=== PATIENT | male | born 1960 | race Caucasian/White ===

== ENCOUNTER 2023-09-18 14:40 | Outpatient (AMB) | payer OTHER, SELFPAY ==
--- NOTE | 2023-09-18 14:41 | MHC.OFFVIS ---
Vital Signs 09/18/23 14:50 Height 5 ft 5 in Weight 195 lb BMI 32.4 BP 142/90 H Blood Pressure Location Rt brachial Position Sitting Pulse 81 Intake Visit Reasons: Symptomatic Ramon Cyst to Left Upper Shoulder Intake Note: This patient presents for an assessment for symptomatic Sebaceous Cyst of the Left Upper Shoulder. Pt c/o; reports pain and discomfort, report left shoulder. 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 He says that he has had this for a few months. He denies any drainage or skin changes. He denies inflammation but he does state that seems to have increased in size. He therefore wants this removed. [facility] Medical History (Updated 09/18/23 @ 14:54 by Raj Ferrer MD) Epidermal inclusion cyst Surgical History (Updated 09/18/23 @ 14:48 by ANDRZEJ Adair) History of nasal surgery Social History Alcohol intake: current Alcohol intake frequency: holidays/special occasions only Patient Tobacco Use Status: Never used Tobacco Review of Systems Const Denies chills and Denies fever(s) Card Denies chest pain, Denies dyspnea and Denies dyspnea on exertion Resp Denies cough, Denies dyspnea and Denies dyspnea on exertion GI Denies hematochezia and Denies change in bowel habits Denies hematuria and Denies difficulty urinating Musc Denies back pain and Denies limited range of motion Neuro Denies focal weakness and Denies convulsions Psych Denies depression and Denies mood swings Physical Exam Const General: comfortable and no acute distress Orientation/consciousness: patient oriented x3 Neck Neck: Yes no lymphadenopathy Resp Auscultation: clear to auscultation bilaterally Cardio Rhythm: regular rhythm GI Palpation (GI): Soft to palpation, nontender and no guarding Back/Spine/Pelvis Other: On the left shoulder is note of an epidermal inclusion cyst, about 2 cm in diameter, not inflamed Neuro General: patient oriented x3 Assessment & Plan Assessment & Plan (1) Epidermal inclusion cyst: Code(s): L72.0 - Epidermal cyst Category: Medical Plan I explained to him the technique of excision of this epidermal cyst on his left shoulder.. I reviewed the risks including but not limited to bleeding and infections, as well as the benefits and alternatives. He understands and wants to proceed. This will be done on his next visit here in the office. Coding Level of Care Code New Pt Level 3 (92022) Diagnoses Epidermal inclusion cyst L72.0
[2023-09-18 14:50] VITALS: BP 142/90; PULSE 81; BMI 32.4
== END 2023-09-18 15:00 | disposition home or self-care (01) ==
PROVIDERS: PCP Internal Medicine; Visit Provider Surgery
DX: L72.0 Epidermal cyst (principal)
CPT/HCPCS: 99203

== ENCOUNTER → 2023-09-18 14:40 | Outpatient (BNVA) | payer OTHER, SELFPAY | PROVIDERS: PCP Internal Medicine; Visit Provider Surgery | DX: L72.0 Epidermal cyst (principal) | CPT/HCPCS: 99202 ==

== ENCOUNTER 2023-10-06 14:45 | Outpatient (REF) | payer OTHER, SELFPAY | END 2023-10-06 14:46 | disposition home or self-care (01) | LOC: HO.LNP 14:45 | PROVIDERS: PCP Internal Medicine; Visit Provider Surgery | DX: L72.0 Epidermal cyst (principal) | CPT/HCPCS: 11423; 88304 ==

== ENCOUNTER 2023-10-06 14:45 | Outpatient (AMB) | payer OTHER, SELFPAY ==
--- NOTE | 2023-10-06 14:50 | MHC.OFFVIS ---
Intake Visit Reasons: Exc Symptomatic Ramon Cyst to Left Upper Shoulder Intake Note: Office procedure: Excision Symptomatic Ramon Cyst to Left Upper Shoulder. 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 Lidocaine 1% was used for local anesthesia. I made an elliptical incision on the skin surrounding this cyst using blade 15. This carried down through the full-thickness of the skin and subcutaneous fat to excise this entire indurated area. This was about a 2.2 cm cystic induration. The incision was closed with full-thickness nylon 3-0 interrupted sutures. Dressings were applied. The procedure was completed. He tolerated the procedure well. There were no immediate complications. There was minimal blood loss. [id number] scalp/neck/hands/feet/genitalia 2.1cm-3cm Procedure code (CPT) selection complete Assessment & Plan Assessment & Plan (1) Epidermal inclusion cyst: Code(s): L72.0 - Epidermal cyst Category: Medical Plan: Excision was done in the office local anesthesia. He was given wound care instructions. Coding Level of Care Code Global (72467) Diagnoses Epidermal inclusion cyst L72.0 CPT Codes Scalp/Neck/Hands/Feet/Genetalia - CPT: 10920-Lvscmsof scalp/neck/hands/feet/genitalia 2.1cm-3cm ([id number])
== END 2023-10-06 15:17 | disposition home or self-care (01) ==
PROVIDERS: PCP Internal Medicine; Visit Provider Surgery
DX: L72.0 Epidermal cyst (principal)
CPT/HCPCS: 11423

== ENCOUNTER 2023-10-15 14:26 | Outpatient (AMB) | payer OTHER, SELFPAY ==
--- NOTE | 2023-10-15 14:28 | A.OFFVIS_ITS ---
Intake Visit Reasons: S/p exc edilberto cyst left upper shoulder Intake Note: This patient presents for a post-op assessment status post Epidermal inclusion cyst. Patient c/o; reports no complaints. 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 He tolerated the procedure well. He currently denies significant complaints. [facility] Medical History Epidermal inclusion cyst Surgical History History of removal of cyst (~10/06/23) History of nasal surgery Social History Alcohol intake: current Alcohol intake frequency: holidays/special occasions only Patient Tobacco Use Status: Never used Tobacco Review of Systems Const Denies chills and Denies fever(s) Card Denies chest pain, Denies dyspnea and Denies dyspnea on exertion Resp Denies cough, Denies dyspnea and Denies dyspnea on exertion GI Denies hematochezia and Denies change in bowel habits Denies hematuria and Denies difficulty urinating Musc Denies back pain and Denies limited range of motion Neuro Denies focal weakness and Denies convulsions Psych Denies depression and Denies mood swings Physical Exam Const General: comfortable and no acute distress Back/Spine/Pelvis Other: Excision site on the left upper back near shoulder is well healed, sutures inta ct, not infected Assessment & Plan Assessment & Plan (1) Epidermal inclusion cyst: Code(s): L72.0 - Epidermal cyst Category: Medical Plan: Status post excision. He is doing well. The incisions well healed. I removed his sutures. I reinforced the incision with Steri-Strips. He can follow up on a p.r.n. basis. His path report shows an epidermal inclusion cyst. Coding Level of Care Code Global (25695) Diagnoses Epidermal inclusion cyst L72.0
== END 2023-10-15 14:37 | disposition home or self-care (01) ==
PROVIDERS: PCP Internal Medicine; Visit Provider Surgery
DX: L72.0 Epidermal cyst (principal)
CPT/HCPCS: 99024

== ENCOUNTER → 2023-10-15 14:26 | Outpatient (BNVA) | payer OTHER, SELFPAY | PROVIDERS: PCP Internal Medicine; Visit Provider Surgery | DX: Z09 Encounter for follow-up examination after completed treatment for conditions other than malignant neoplasm (principal) | CPT/HCPCS: 99212 ==

== ENCOUNTER 2023-10-27 14:36 | Outpatient (AMB) | payer OTHER, SELFPAY ==
--- NOTE | 2023-10-27 14:57 | A.OFFVIS_ITS ---
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 Lopez. He has a past medical history of depression, insomnia, chronic rhinitis, nephrolithiasis, and BPH. He presents to the office today as a new patient for his longstanding history of nephrolithiasis and BPH. In discussion with the patient today he reports previously following up with a urologist in the [place] through the [place]. he reports having followed up with his PCP at which time recommendations were made for urology referral for further assessment evaluation. Patient reports noting intermittent episodes of left-sided flank pain with increased episodes of urinary frequency and nocturia. Reports being on Flomax for over 3 years and feels this has been helpful however does feel lower urinary tract symptoms of nocturia and urinary frequency have somewhat worsened since then. In office urinalysis results reviewed with the patient today. Microscopic hematuria noted. When asked he denies any previous smoking history and or chemical exposure. 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 Discussed at length potential causes of microscopic hematuria. He denies any previous surgical intervention for nephrolithiasis. He otherwise denies urinary urgency incontinence, nocturia, hematuria, dysuria, foul smelling urine, changes to urinary stream, flank pain, fever, and or chills. Discussed obtaining PSA and CT KUB for further assessment evaluation. PVR 23ml's. He otherwise offers no other issues or concerns at this time. [facility] Medical History Epidermal inclusion cyst Surgical History History of removal of cyst (~10/06/23) History of nasal surgery Social History Alcohol intake: current Alcohol intake frequency: holidays/special occasions only Patient Tobacco Use Status: Never used Tobacco Review of Systems Const All systems reviewed & are unremarkable except as noted in HPI and below Physical Exam Const General: cooperative, healthy appearing, comfortable, no acute distress, well developed, alert and awake Orientation/consciousness: patient oriented x3 Limitations: no limitations HEENT Head: Yes normal to inspection, Yes normocephalic and Yes atraumatic Ears: hearing grossly normal bilaterally Eyes General: appearance normal, both eyes and all related structures Neck Neck: Yes normal visual inspection and Yes trachea midline Chest Chest palpation & inspection: normal inspection of the chest Resp Effort & Inspection: normal respiratory effort and able to speak in complete sentences Cardio Rate: regular rate GI Inspection: Yes normal to inspection General: Yes no CVA tenderness Back/Spine/Pelvis Back: no CVA tenderness Skin General skin exam: no rashes or lesions noted Neuro General: patient oriented x3 Extrem General: Yes normal to inspection Psych Appearance: grossly normal and well kempt Mental Status: mental status grossly normal Speech and movement: Normal speech and movement present and Clear speech present Affect: normal affect Attitude: cooperative Thought process: Normal thought process present Thought content: Normal thought content present Insight: Fair insight present (Psych) Judgement: Fair judgement present (Psych) Office Procedures Post Void Residual Post Residual Void Post Void Residual (PVR): 23 [id number] Void Residual by ultrasound Results AMB Urinalysis, Automated UA Leukoctes 0 Fallon/uL Last Edit by Arnoldo Gomes on 10/27/23 15:11 UA Nitrite Negative Last Edit by Arnoldo Gomes on 10/27/23 15:11 UA Urobilinogen 0.2 mg/dL Last Edit by Arnoldo Gomes on 10/27/23 15:11 UA Protein 15 mg/dL Last Edit by Arnoldo Gomes on 10/27/23 15:11 UA pH 6.0 Last Edit by Arnoldo Gomes on 10/27/23 15:11 UA Blood 80 Yonatan/uL Last Edit by Arnoldo Gomes on 10/27/23 15:11 UA Specific [place] 1.025 Last Edit by Arnoldo Perezbalaji on 10/27/23 15:11 UA Ketone Positive Last Edit by Arnoldo Perezbalaji on 10/27/23 15:11 UA Bilirubin 1 mg/dL Last Edit by Arnoldo Perezbalaji on 10/27/23 15:11 UA Glucose 0 mg/dL Last Edit by Arnoldo Perezbalaji on 10/27/23 15:11 Results Reviewed Results Reviewed: Laboratory Last Values Urine pH (Auto) 6.0 10/27/23 15:10 Specific [place] (Auto) 1.025 10/27/23 15:10 Urine Protein (Auto) 15 mg/dL 10/27/23 15:10 Glucose (UA)(Auto) 0 mg/dL 10/27/23 15:10 Urine Ketones (Auto) Positive 10/27/23 15:10 Urine Blood (Auto) 80 Yonatan/uL 10/27/23 15:10 Urine Nitrite (Auto) Negative 10/27/23 15:10 Urine Bilirubin (Auto) 1 mg/dL 10/27/23 15:10 Urine Urobilinogen (Auto) 0.2 mg/dL 10/27/23 15:10 Leukocyte Esterase (Auto) 0 Fallon/uL 10/27/23 15:10 Assessment & Plan Assessment & Plan (1) Nephrolithiasis: Code(s): N20.0 - Calculus of kidney Category: Medical (2) Flank pain: Code(s): R10.9 - Unspecified abdominal pain Category: Medical (3) BPH (benign prostatic hyperplasia): Code(s): N40.0 - Benign prostatic hyperplasia without lower urinary tract symptoms Category: Medical Plan In office urinalysis results reviewed with the patient today; as noted above; will send for urine cytology. Discussed, educated, and stressed the importance of adequate hydration in relation to nephrolithiasis as well as overall health and well-being. Continue Flomax; prescription provided. Will obtain CT KUB for further assessment evaluation. Will obtain PSA for further assessment evaluation. Discussed lifestyle modifications to assist with nocturia. Follow-up in 1-3 months with imaging and labs to be completed prior; or sooner with any issues, concerns, and or questions. Orders: Orders Prostate Specific Antigen Today N40.0 - Benign prostatic hyperplasia without lower urinary tract symptoms Urine Cytology Today Z13.9 - Encounter for screening, unspecified AMB Urinalysis Automated Today Z13.9 - Encounter for screening, unspecified AMB Post Void Residual by ultrasound Today Z13.9 - Encounter for screening, unspecified CT kidney stone Today N20.0 - Calculus of kidney, R10.9 - Unspecified abdominal pain Medications: Changed From tamsulosin 0.8 mg PO DAILY To tamsulosin 0.8 mg (2 x 0.4 mg) PO DAILY 180 caps 1RF 90 days Patient Instructions: The patient had an opportunity to ask questions regarding the treatment plan. All questions were answered. Physical exam, labs, and imaging were discussed and reviewed in detail. As well as risks, benefits, and discussion of treatment choices. No major barriers to understanding were identified. The patient expressed understanding and agreement with the above treatment plan. The patient was made aware they should contact our office by phone for worsening of their current condition, the appearance of new symptoms, or with any questions or concerns. Compliance is encouraged with any medications and follow up testing that is ordered. It is a privilege to be allowed the opportunity to participate in? your urological care.? Again, if you have any questions or concerns If you have any questions or concerns please do not hesitate to contact me. The office is [phone]. This note is constructed using voice recognition software. While every effort has been made to ensure accuracy acquisitions assistant errors may have been included. Yours sincerely, PHUC Rodriguez Coding Level of Care Code New Pt Level 3 (79054) Diagnoses Nephrolithiasis N20.0 Flank pain R10.9 BPH (benign prostatic hyperplasia) N40.0 CPT Codes Post Residual Void - PVR CPT Code: 65215-Csiu Void Residual by ultrasound ([id number])
== END 2023-10-27 15:28 | disposition home or self-care (01) ==
PROVIDERS: PCP Internal Medicine; Referring Provider Internal Medicine; Visit Provider Nurse Practitioner Family
DX: N20.0 Calculus of kidney (principal); R10.9 Unspecified abdominal pain; N40.0 Benign prostatic hyperplasia without lower urinary tract symptoms; Z13.9 Encounter for screening, unspecified
CPT/HCPCS: 99203

== ENCOUNTER 2023-10-27 14:36 | Outpatient (REF) | payer OTHER, SELFPAY ==
[2023-10-27 17:23] LABS: Urine Cytology See Pathology rpt
== END 2023-10-27 14:37 | disposition home or self-care (01) ==
LOC: HO.LNP 14:36
PROVIDERS: PCP Internal Medicine; Visit Provider Nurse Practitioner Family
DX: N20.0 Calculus of kidney (principal); R10.9 Unspecified abdominal pain; N40.0 Benign prostatic hyperplasia without lower urinary tract symptoms
CPT/HCPCS: 51798; 81003; 88112; 99202

== ENCOUNTER 2023-12-09 16:37 | Outpatient (REF) | payer OTHER, SELFPAY ==
--- NOTE | ~2023-12-09 | CT_ITS ---
EXAMINATION: CT ABDOMEN AND PELVIS WITHOUT CONTRAST CLINICAL INFORMATION: Renal calculus. COMPARISON: None available. TECHNIQUE: Multidetector volumetric imaging was performed from the superior aspect of the liver through the pubic symphysis. Sagittal and coronal reformatted images were obtained on the technologist's workstation. This CT examination was performed using dose optimization techniques as appropriate, variously including the following: *Automated exposure control *Adjustment of mA and/or kV according to patient size (this includes techniques or standardized protocols for targeted exams where dose is matched to indication/reason for exam; i.e. extremities or head) *Use of iterative reconstruction technique DLP: 42 mGy-cm FINDINGS: LUNG BASES: A tiny benign, calcified granuloma is seen at the left lateral costophrenic angle. LIVER, GALLBLADDER, AND BILIARY TREE: The liver is normal in size, shape, and attenuation. No focal hepatic lesion or biliary ductal dilatation is present. The gallbladder is unremarkable with no evidence of radiopaque gallstones, gallbladder wall thickening, or obvious pericholecystic inflammatory changes. PANCREAS: Unremarkable. SPLEEN: Unremarkable. ADRENAL GLANDS: Unremarkable. KIDNEYS AND URETERS: The kidneys are normal in size, shape, and attenuation. At the lower pole of the right kidney (3:29), a 3 mm nonobstructing calculus is seen. No further urinary calculus is seen, and there is no obstructive uropathy. No urinary mass is noted. There is mild nonspecific bilateral perinephric stranding. BLADDER: Decompressed and otherwise unremarkable. GASTROINTESTINAL TRACT: The small and large bowel are unremarkable. The appendix is unremarkable. ABDOMINAL WALL: There is a very small fat-containing umbilical hernia. LYMPH NODES: Normal. VASCULAR: There is mild aortoiliac atherosclerotic calcification. No abdominal aortic aneurysm is seen. PELVIC VISCERA: The prostate and seminal vesicles are unremarkable. OSSEOUS STRUCTURES: There is multi-level thoracolumbar spondylosis, with endplate arthropathy and Schmorl's node formation. Endplate arthropathy is particularly severe at T10-11, with anterior bridging. No acute or aggressive osseous finding is noted. CT/CT kidney stone IMPRESSION: 1. A 3 mm nonobstructing right renal lower pole calculus is seen. No further urinary calculus is seen, and there is no obstructive uropathy. 2. There is no abdominopelvic mass, free fluid or lymphadenopathy. 3. No bowel obstruction, free intraperitoneal air or abscess is seen. There is no appendicitis or diverticulitis. 4. There is no abdominopelvic lymphadenopathy or ascites. 5. There is multi-level thoracolumbar spondylosis. No acute or aggressive osseous finding is seen. Fleischner guidelines were followed. Electronically signed by: Hugh Bedolla MD 12/23/2023 04:23 PM EDT
== END 2023-12-09 16:38 | disposition home or self-care (01) ==
LOC: HO.CT 16:37
PROVIDERS: Visit Provider Nurse Practitioner Family
DX: R10.9 Unspecified abdominal pain (principal); N20.0 Calculus of kidney
CPT/HCPCS: 74176

== ENCOUNTER 2023-12-20 11:18 | Outpatient (REF) | payer OTHER, SELFPAY ==
[2023-12-20 14:03] LABS: Prostate Specific Antigen 0.57 ng/mL (<0.05-4.0)
== END 2023-12-20 11:19 | disposition home or self-care (01) ==
LOC: HO.HMGCLDS 11:18
PROVIDERS: Visit Provider Nurse Practitioner Family
DX: N40.0 Benign prostatic hyperplasia without lower urinary tract symptoms (principal); Z12.5 Encounter for screening for malignant neoplasm of prostate
CPT/HCPCS: 36415; 84153

== ENCOUNTER 2023-12-23 14:31 | Outpatient (AMB) | payer OTHER, SELFPAY ==
--- NOTE | 2023-12-23 14:39 | A.OFFVIS_ITS ---
Intake Visit Reasons: 2m/CT KUB/PSA Intake Note: Patient presents today for follow up visit on: BPH, nephrolithiasis, CT Scan and PSA results Imaging Completed: 12/09/23 PSA: 0.57 Urology Medications: Tamsulosin Allergies to Antibiotic: none Blood Thinner: none PVR: 39ml's Distribution Field Technician Required: No Accompanied by: Self / Same As Patient Allergies No Known Allergies Allergy (Verified 12/23/23 16:15) Medication List - Last Reconciled 12/23/23 by PHUC Rodriguez bupropion HCl SR 100 mg PO QAM fluticasone propionate 50 mcg/actuation sprays intranasal gabapentin mg PO paroxetine HCl 40 mg PO DAILY prazosin 10 mg PO BID tamsulosin 0.8 mg (2 x 0.4 mg) PO DAILY 90 days trazodone 100 mg PO BEDTIME HPI Comments Details: Priyank is a very pleasant 63-year-old male patient of Dr. Lopez. He has a past medical history of depression, insomnia, chronic rhinitis, nephrolithiasis, and BPH. He presents to the office today for follow-up. Of note, patient was seen approximately 6 weeks ago as a new patient for his longstanding history of nephrolithiasis, microscopic hematuria and BPH at which time a CT urogram was ordered as well as a PSA for further assessment evaluation. These results reviewed with the patient today. The kidneys are normal in size, shape, and attenuation. At the lower pole of the right kidney a 3 mm nonobstructing calculus is seen. There are no further urinary calculus is seen and there is no obstructive uropathy. No urinary masses noted. The bladder is decompressed otherwise unremarkable. PSA 12/19 0.6. He reports currently being happy with voiding parameters on 0.8 mg of Flomax daily. However he does discuss noting urinary symptoms if he misses a dose. In office urinalysis results reviewed with the patient today. PVR 39 mL. Reviewed urine cytology 11/18 Negative for high-grade urothelial carcinoma. We discussed at length potential causes of microscopic hematuria. Discussed workup to include in office cystoscopy versus surveillance monitoring risks and benefits of these interventions were discussed. He otherwise denies urinary urgency incontinence, nocturia, hematuria, dysuria, foul smelling urine, changes to urinary stream, flank pain, fever, and or chills. He otherwise offers no other issues or concerns at this time. [facility] Medical History Epidermal inclusion cyst Surgical History History of removal of cyst (~10/06/23) History of nasal surgery Social History Alcohol intake: current Alcohol intake frequency: holidays/special occasions only Patient Tobacco Use Status: Never used Tobacco Review of Systems Const All systems reviewed & are unremarkable except as noted in HPI and below Physical Exam Const General: cooperative, healthy appearing, comfortable, no acute distress, well developed, alert and awake Orientation/consciousness: patient oriented x3 Limitations: no limitations HEENT Head: Yes normal to inspection, Yes normocephalic and Yes atraumatic Ears: hearing grossly normal bilaterally Eyes General: appearance normal, both eyes and all related structures Neck Neck: Yes normal visual inspection and Yes trachea midline Chest Chest palpation & inspection: normal inspection of the chest Resp Effort & Inspection: normal respiratory effort and able to speak in complete sentences Cardio Rate: regular rate GI Inspection: Yes normal to inspection General: Yes no CVA tenderness Back/Spine/Pelvis Back: no CVA tenderness Skin General skin exam: no rashes or lesions noted Neuro General: patient oriented x3 Extrem General: Yes normal to inspection Psych Appearance: grossly normal and well kempt Mental Status: mental status grossly normal Speech and movement: Normal speech and movement present and Clear speech present Affect: normal affect Attitude: cooperative Thought process: Normal thought process present Thought content: Normal thought content present Insight: Fair insight present (Psych) Judgement: Fair judgement present (Psych) Office Procedures Post Void Residual Post Residual Void Post Void Residual (PVR): 39 [id number] Void Residual by ultrasound Results AMB Urinalysis, Automated UA Leukoctes 0 Fallon/uL Last Edit by Arnoldo Gmoes on 12/23/23 14:57 UA Nitrite Last Edit by Arnoldo Gomes on 12/23/23 14:57 UA Urobilinogen 0.2 mg/dL Last Edit by Arnoldo Gomes on 12/23/23 14:57 UA Protein 15 mg/dL Last Edit by Arnoldo Gomes on 12/23/23 14:57 UA pH 6.0 Last Edit by Arnoldo Gomes on 12/23/23 14:57 UA Blood 25 Yonatan/uL Last Edit by Arnoldo Gomes on 12/23/23 14:57 UA Specific [place] 1.025 Last Edit by Arnoldo Gomes on 12/23/23 14:57 UA Ketone Last Edit by Arnoldo Gomes on 12/23/23 14:57 UA Bilirubin 1 mg/dL Last Edit by Arnoldo Gomes on 12/23/23 14:57 UA Glucose 0 mg/dL Last Edit by Arnoldo Gomes on 12/23/23 14:57 Results Reviewed Results Reviewed: Laboratory Last Values Urine pH (Auto) 6.0 12/23/23 14:48 Specific [place] (Auto) 1.025 12/23/23 14:48 Urine Protein (Auto) 15 mg/dL 12/23/23 14:48 Glucose (UA)(Auto) 0 mg/dL 12/23/23 14:48 Urine Blood (Auto) 25 Yonatan/uL 12/23/23 14:48 Urine Bilirubin (Auto) 1 mg/dL 12/23/23 14:48 Urine Urobilinogen (Auto) 0.2 mg/dL 12/23/23 14:48 Leukocyte Esterase (Auto) 0 Fallon/uL 12/23/23 14:48 Date of Service: 12/09/23 EXAMINATION: CT ABDOMEN AND PELVIS WITHOUT CONTRAST FINDINGS: LUNG BASES: A tiny benign, calcified granuloma is seen at the left lateral costophrenic angle. LIVER, GALLBLADDER, AND BILIARY TREE: The liver is normal in size, shape, and attenuation. No focal hepatic lesion or biliary ductal dilatation is present. The gallbladder is unremarkable with no evidence of radiopaque gallstones, gallbladder wall thickening, or obvious pericholecystic inflammatory changes. PANCREAS: Unremarkable. SPLEEN: Unremarkable. ADRENAL GLANDS: Unremarkable. KIDNEYS AND URETERS: The kidneys are normal in size, shape, and attenuation. At the lower pole of the right kidney (3:29), a 3 mm nonobstructing calculus is seen. No further urinary calculus is seen, and there is no obstructive uropathy. No urinary mass is noted. There is mild nonspecific bilateral perinephric stranding. BLADDER: Decompressed and otherwise unremarkable. GASTROINTESTINAL TRACT: The small and large bowel are unremarkable. The appendix is unremarkable. ABDOMINAL WALL: There is a very small fat-containing umbilical hernia. LYMPH NODES: Normal. VASCULAR: There is mild aortoiliac atherosclerotic calcification. No abdominal aortic aneurysm is seen. PELVIC VISCERA: The prostate and seminal vesicles are unremarkable. OSSEOUS STRUCTURES: There is multi-level thoracolumbar spondylosis, with endplate arthropathy and Schmorl's node formation. Endplate arthropathy is particularly severe at T10-11, with anterior bridging. No acute or aggressive osseous finding is noted. CT/CT kidney stone IMPRESSION: 1. A 3 mm nonobstructing right renal lower pole calculus is seen. No further urinary calculus is seen, and there is no obstructive uropathy. 2. There is no abdominopelvic mass, free fluid or lymphadenopathy. 3. No bowel obstruction, free intraperitoneal air or abscess is seen. There is no appendicitis or diverticulitis. 4. There is no abdominopelvic lymphadenopathy or ascites. 5. There is multi-level thoracolumbar spondylosis. No acute or aggressive osseous finding is seen. Assessment & Plan Assessment & Plan (1) BPH (benign prostatic hyperplasia): Code(s): N40.0 - Benign prostatic hyperplasia without lower urinary tract symptoms Category: Medical (2) Nephrolithiasis: Code(s): N20.0 - Calculus of kidney Category: Medical (3) Microscopic hematuria: Code(s): R31.29 - Other microscopic hematuria Category: Medical Plan In office urinalysis results reviewed with the patient today; as noted above. Recent CT urogram results reviewed with the patient today; as noted above. PVR 39 mL. Previous urine cytology results reviewed with the patient today; as noted above. Recent PSA results reviewed with the patient today; as noted above. Discussed at length potential causes of microscopic hematuria; discussed workup to include in office cystoscopy versus surveillance monitoring; risks and benefits of these interventions were discussed at length. All questions were answered. Discussed, educated, and stressed the importance of adequate hydration relation to nephrolithiasis as well as overall health and well-being. Continue Flomax. Patient currently denies any bothersome urinary issues or concerns. Reports to be happy with current voiding parameters on 0.8 mg of Flomax daily; will continue. Will continue with surveillance monitoring of nephrolithiasis as well as microscopic hematuria. Discussed adding 1 oz of lemon juice to water daily. Will obtain renal ultrasound in 6 months. Follow-up in 6 months with imaging to be completed prior; or sooner with any issues, concerns, and or questions. Orders: Orders AMB Post Void Residual by ultrasound Today N40.0 - Benign prostatic hyperplasia without lower urinary tract symptoms AMB Urinalysis Automated Today Z13.9 - Encounter for screening, unspecified US renal BI 6 Months N20.0 - Calculus of kidney Patient Instructions: The patient had an opportunity to ask questions regarding the treatment plan. All questions were answered. Physical exam, labs, and imaging were discussed and reviewed in detail. As well as risks, benefits, and discussion of treatment choices. No major barriers to understanding were identified. The patient expressed understanding and agreement with the above treatment plan. The patient was made aware they should contact our office by phone for worsening of their current condition, the appearance of new symptoms, or with any questi ons or concerns. Compliance is encouraged with any medications and follow up testing that is ordered. It is a privilege to be allowed the opportunity to participate in? your urological care.? Again, if you have any questions or concerns If you have any questions or concerns please do not hesitate to contact me. The office is [phone]. This note is constructed using voice recognition software. While every effort has been made to ensure accuracy application design engineer errors may have been included. Yours sincerely, PHUC Rodriguez Coding Level of Care Code Est Pt Level 4 (35518) Complex EM visit Add On G2211 Diagnoses BPH (benign prostatic hyperplasia) N40.0 Nephrolithiasis N20.0 Microscopic hematuria R31.29 CPT Codes Post Residual Void - PVR CPT Code: 50271-Kfnq Void Residual by ultrasound ([id number])
== END 2023-12-23 15:20 | disposition home or self-care (01) ==
PROVIDERS: PCP Internal Medicine; Visit Provider Nurse Practitioner Family
DX: N40.0 Benign prostatic hyperplasia without lower urinary tract symptoms (principal); N20.0 Calculus of kidney; R31.29 Other microscopic hematuria; Z13.9 Encounter for screening, unspecified
CPT/HCPCS: 99214; G2211

== ENCOUNTER → 2023-12-23 14:31 | Outpatient (BNVA) | payer OTHER, SELFPAY | PROVIDERS: PCP Internal Medicine; Visit Provider Nurse Practitioner Family | DX: N40.0 Benign prostatic hyperplasia without lower urinary tract symptoms (principal); N20.0 Calculus of kidney; R31.29 Other microscopic hematuria | CPT/HCPCS: 51798; 81003; 99212 ==

== ENCOUNTER 2024-07-09 15:14 | Outpatient (REF) | payer OTHER, SELFPAY ==
--- NOTE | ~2024-07-09 | US_ITS ---
EXAMINATION: US KIDNEY BILATERAL HISTORY: N20.0 - Calculus of kidney TECHNIQUE: Real-time grayscale ultrasound imaging of the kidneys was performed and images were reviewed. COMPARISON: Correlation is made with a CT of the abdomen without contrast dated 12/09/2023. FINDINGS: Right kidney: The right kidney measures 12.6 x 7.0 x 6.4 cm. Renal parenchymal echotexture and thickness are normal. There are no masses. There is no hydronephrosis or renal calculi. Left Kidney: The left kidney measures 12.7 x 5.5 x 4.7 cm. Renal parenchymal echotexture and thickness are normal. There are no masses. There is no hydronephrosis or renal calculi. US/US renal BI IMPRESSION: Unremarkable renal ultrasound. Electronically signed by: Bryon Khan MD 07/09/2024 03:52 PM EDT
== END 2024-07-09 15:15 | disposition home or self-care (01) ==
LOC: HO.US 15:14
PROVIDERS: PCP Internal Medicine; Visit Provider Nurse Practitioner Family
DX: N20.0 Calculus of kidney (principal)
CPT/HCPCS: 76775

== ENCOUNTER → 2024-07-09 15:15 | Outpatient (BNV) | payer OTHER, SELFPAY | PROVIDERS: PCP Internal Medicine; Visit Provider Radiology Diagnostic Radiology | DX: N20.0 Calculus of kidney (principal) | CPT/HCPCS: 76775 ==

== ENCOUNTER 2024-07-22 07:45 | Outpatient (REF) | payer OTHER, SELFPAY ==
[2024-07-22 16:56] LABS: Urine Cytology See Pathology rpt
== END 2024-07-22 07:46 | disposition home or self-care (01) ==
LOC: HO.LNP 07:45
PROVIDERS: PCP Internal Medicine; Visit Provider Nurse Practitioner Family
DX: R31.29 Other microscopic hematuria (principal); N40.0 Benign prostatic hyperplasia without lower urinary tract symptoms; N20.0 Calculus of kidney
CPT/HCPCS: 51798; 81003; 88112; 99212

== ENCOUNTER 2024-07-22 07:45 | Outpatient (AMB) | payer OTHER, SELFPAY ==
--- NOTE | 2024-07-22 07:53 | MHC.OFFVIS ---
Intake Visit Reasons: 6m/US/PVR(set) Intake Note: Patient presents today for follow up visit on: BPH, nephrolithiasis, and ultrasound results Imaging Completed: 07/09/24 Urology Medications: Tamsulosin Allergies to Antibiotic: none Blood Thinner: none PVR: 30ml's Manager Engine Required: No Accompanied by: Self / Same As Patient Allergies No Known Allergies Allergy (Verified 07/22/24 08:10) Medication List - Last Reconciled 07/22/24 by CHUCK Rodriguez- bupropion HCl SR 100 mg PO QAM fluticasone propionate 50 mcg/actuation sprays intranasal gabapentin mg PO paroxetine HCl 40 mg PO DAILY prazosin 10 mg PO BID tamsulosin 0.8 mg (2 x 0.4 mg) PO DAILY 90 days trazodone 100 mg PO BEDTIME HPI Comments Details: Priyank is a very pleasant 64-year-old male patient of Dr. Lopez. He has a past medical history of depression, insomnia, chronic rhinitis, nephrolithiasis, and BPH. He presents to the office today for follow-up of his nephrolithiasis, microscopic hematuria and BPH. In discussion with the patient today he reports to be doing and feeling well. Recent renal imaging results reviewed with the patient today 07/20 bilateral kidneys with no calculi or hydronephrosis noted. He reports noting retrograde ejaculation with 0.8 mg of Flomax daily. He discusses at times he does not take his Flomax due to this issue however feels urinary difficulties. The medication-induced side effect of retrograde ejaculation is causing intermittent discontinuation of Tamsulosin. He wishes to try alternative therapies to avoid these side effects. In office urinalysis results reviewed with the patient today. 2+ microscopic hematuria we discuss urine cytology 11/18 Negative for high-grade urothelial carcinoma. We discussed potential causes of microscopic hematuria as well as further workup to include in office cystoscopy. He otherwise denies urinary urgency, urinary frequency, incontinence, nocturia, hematuria, dysuria, foul smelling urine, changes to urinary stream, flank pain, fever, and or chills. [facility] reports [facility] and believes he has had a recent PSA. Will attempt to obtain. PSA 01/19 0.6. PVR 30ml's. He otherwise offers no other issues or concerns at this time Plan The patient will transition from Tamsulosin to alfuzosin 10 mg once nightly to manage BPH symptoms while potentially mitigating undesired side effects such as retrograde ejaculation. Routine surveillance of prostate-specific antigen levels will persist annually. Current hematuria findings were discussed and further workup was also discussed. He will be monitored for any changes in urinary symptoms or new side effects from the medication change. Patient was informed and verbally consented to the use of an ambient scribe for clinic note documentation during this visit. Discussion Notes I discussed the management plan with the patient, explaining the benefits and risks of switching from Tamsulosin to alfuzosin, particularly to address side effects such as retrograde ejaculation. We examined alternatives within the same class of medication, highlighting their comparative efficacy and effects. The PSA level will continue to be monitored annually, with reassurance given about its current normality. We talked through the implications of microscopic hematuria. The patient agreed to the medication switch and is aware of follow-up protocols, with anticipation of reassessment of his urinary symptoms at the next visit. [facility] Medical History Epidermal inclusion cyst Surgical History History of removal of cyst (~10/06/23) History of nasal surgery Social History Alcohol intake: current Alcohol intake frequency: holidays/special occasions only Patient Tobacco Use Status: Never used Tobacco Review of Systems Const All systems reviewed & are unremarkable except as noted in HPI and below Physical Exam Const General: cooperative, healthy appearing, comfortable, no acute distress, well developed, alert and awake Orientation/consciousness: patient oriented x3 Limitations: no limitations HEENT Head: Yes normal to inspection, Yes normocephalic and Yes atraumatic Ears: hearing grossly normal bilaterally Eyes General: appearance normal, both eyes and all related structures Neck Neck: Yes normal visual inspection and Yes trachea midline Chest Chest palpation & inspection: normal inspection of the chest Resp Effort & Inspection: normal respiratory effort and able to speak in complete sentences Cardio Rate: regular rate GI Inspection: Yes normal to inspection General: Yes no CVA tenderness Back/Spine/Pelvis Back: no CVA tenderness Skin General skin exam: no rashes or lesions noted Neuro General: patient oriented x3 Extrem General: Yes normal to inspection Psych Appearance: grossly normal and well kempt Mental Status: mental status grossly normal Speech and movement: Normal speech and movement present and Clear speech present Affect: normal affect Attitude: cooperative Thought process: Normal thought process present Thought content: Normal thought content present Insight: Fair insight present (Psych) Judgement: Fair judgement present (Psych) Office Procedures Post Void Residual Post Residual Void Post Void Residual (PVR): 30 [id number] Void Residual by ultrasound Results AMB Urinalysis, Automated UA Leukoctes 0 Fallon/uL Last Edit by [employer] on 07/22/24 08:09 UA Nitrite Last Edit by [employer] on 07/22/24 08:09 UA Urobilinogen 0.2 mg/dL Last Edit by [employer] on 07/22/24 08:09 UA Protein 30 mg/dL Last Edit by [employer] on 07/22/24 08:09 UA pH 6.0 Last Edit by [employer] on 07/22/24 08:09 UA Blood 80 Yonatan/uL Last Edit by [employer] on 07/22/24 08:09 UA Specific [place] 1.025 Last Edit by [employer] on 07/22/24 08:09 UA Ketone Last Edit by [employer] on 07/22/24 08:09 UA Bilirubin 1 mg/dL Last Edit by [employer] on 07/22/24 08:09 UA Glucose 0 mg/dL Last Edit by [employer] on 07/22/24 08:09 Results Reviewed Results Reviewed: Laboratory Last Values Urine pH (Auto) 6.0 07/22/24 07:57 Specific [place] (Auto) 1.025 07/22/24 07:57 Urine Protein (Auto) 30 mg/dL 07/22/24 07:57 Glucose (UA)(Auto) 0 mg/dL 07/22/24 07:57 Urine Blood (Auto) 80 [place]onatan/uL 07/22/24 07:57 Urine Bilirubin (Auto) 1 mg/dL 07/22/24 07:57 Urine Urobilinogen (Auto) 0.2 mg/dL 07/22/24 07:57 Leukocyte Esterase (Auto) 0 Fallon/uL 03/27/25 07:57 Date of Service: 07/09/24 Procedure(s): US renal BI FINDINGS: Right kidney: The right kidney measures 12.6 x 7.0 x 6.4 cm. Renal parenchymal echotexture and thickness are normal. There are no masses. There is no hydronephrosis or renal calculi. Left Kidney: The left kidney measures 12.7 x 5.5 x 4.7 cm. Renal parenchymal echotexture and thickness are normal. There are no masses. There is no hydronephrosis or renal calculi. IMPRESSION: Unremarkable renal ultrasound. Assessment & Plan Assessment & Plan (1) Microscopic hematuria: Code(s): R31.29 - Other microscopic hematuria Category: Medical (2) BPH (benign prostatic hyperplasia): Code(s): N40.0 - Benign prostatic hyperplasia without lower urinary tract symptoms Category: Medical (3) Nephrolithiasis: Code(s): N20.0 - Calculus of kidney Category: Medical Plan In office urinalysis results reviewed with the patient today; will send for urine cytology. PVR 30 mL. Recent renal imaging results with the patient today; as noted above. Stop Flomax. Start alfuzosin as discussed and prescribed. We discussed potential causes of microscopic hematuria and further interventions to include in office cystoscopy; risks and benefits of these interventions were discussed. Will attempt to obtain PSA from [place]. Follow-up in 3 months with PVR; or sooner with any issues, concerns, and or questions. Orders: Orders AMB Post Void Residual by ultrasound Today N40.0 - Benign prostatic hyperplasia without lower urinary tract symptoms AMB Urinalysis Automated Today Z13.9 - Encounter for screening, unspecified Medications: New alfuzosin ER Take before bedtime 10 mg PO BEDTIME 30 days 30 tabs 3RF N32.0 - Bladder-neck obstruction, N40.1 - Benign prostatic hyperplasia with lower urinary tract symptoms, R33.9 - Retention of urine, unspecified, R35.1 - Nocturia, R39.12 - Poor urinary stream Discontinued tamsulosin Discontinued Reason: Doctor's Order 0.8 mg (2 x 0.4 mg) PO DAILY 90 days 180 caps 1RF Patient Instructions: The patient had an opportunity to ask questions regarding the treatment plan. All questions were answered. Physical exam, labs, and imaging were discussed and reviewed in detail. As well as risks, benefits, and discussion of treatment choices. No major barriers to understanding were identified. The patient expressed understanding and agreement with the above treatment plan. The patient was made aware they should contact our office by phone for worsening of their current condition, the appearance of new symptoms, or with any questions or concerns. Compliance is encouraged with any medications and follow up testing that is ordered. It is a privilege to be allowed the opportunity to participate in? your urological care.? Again, if you have any questions or concerns If you have any questions or concerns please do not hesitate to contact me. The office is [phone]. This note is constructed using voice recognition software. While every effort has been made to ensure accuracy livestock farm manager errors may have been included. Yours sincerely, PHUC Rodriguez Coding Level of Care Code Est Pt Level 4 (08581) Diagnoses Microscopic hematuria R31.29 BPH (benign prostatic hyperplasia) N40.0 Nephrolithiasis N20.0 CPT Codes Post Residual Void - PVR CPT Code: 92366-Xobc Void Residual by ultrasound ([id number])
== END 2024-07-22 08:27 | disposition home or self-care (01) ==
LOC: HO.HUSH 07:46
PROVIDERS: PCP Internal Medicine; Visit Provider Nurse Practitioner Family
DX: R31.29 Other microscopic hematuria (principal); N40.0 Benign prostatic hyperplasia without lower urinary tract symptoms; N20.0 Calculus of kidney; Z13.9 Encounter for screening, unspecified
CPT/HCPCS: 99214

== ENCOUNTER 2024-10-21 15:56 | Outpatient (REF) | payer OTHER, SELFPAY ==
[2024-10-21 17:01] LABS: Urine Cytology See Pathology rpt
== END 2024-10-21 15:57 | disposition home or self-care (01) ==
LOC: HO.LNP 15:56
PROVIDERS: PCP Internal Medicine; Visit Provider Nurse Practitioner Family
DX: N20.0 Calculus of kidney (principal); R31.29 Other microscopic hematuria; N40.0 Benign prostatic hyperplasia without lower urinary tract symptoms
CPT/HCPCS: 51798; 81003; 88112; 99212

== ENCOUNTER 2024-10-21 15:56 | Outpatient (AMB) | payer OTHER, SELFPAY ==
--- NOTE | 2024-10-21 15:57 | A.OFFVIS_ITS ---
Intake Visit Reasons: 3m/PVR Intake Note: Patient presents today for follow up visit on: BPH Urology Medications: Alfuzosin Allergies to Antibiotic: none Blood Thinner: none PVR: 17ml's Director Clinical Research Required: No Accompanied by: Self / Same As Patient Allergies No Known Allergies Allergy (Verified 10/21/24 21:50) Medication List - Last Reconciled 10/21/24 by DANIELLE Rodriguez alfuzosin ER 10 mg PO BEDTIME 90 days bupropion HCl SR 100 mg PO QAM fluticasone propionate 50 mcg/actuation sprays intranasal gabapentin mg PO paroxetine HCl 40 mg PO DAILY prazosin 10 mg PO BID trazodone 100 mg PO BEDTIME HPI Comments Details: Priyank is a very pleasant 64-year-old male patient of Dr. Lopez. He has a past medical history of depression, insomnia, chronic rhinitis, nephrolithiasis, and BPH. He presents to the office today for follow-up of his nephrolithiasis, microscopic hematuria and BPH. In discussion with the patient today he reports to be doing and feeling well. He discusses feeling alfuzosin has been helpful in episodes of urinary hesitancy he had been experiencing. He currently denies any bothersome urinary issues or concerns. Previous workup has included renal ultrasound 07/20 noting bilateral kidneys with no calculi or hydronephrosis noted. In office urinalysis results reviewed with the patient today 2+ microscopic hematuria we did discuss potential causes of microscopic hematuria as well as further workup to include imaging as well as cystoscopy. Previous urine cytology results were reviewed: 11/18 & 07/20 Urine Cytology: Negative for high-grade urothelial carcinoma He denies any previous history of nicotine dependence and or workplace chemical exposure. He denies urinary urgency, urinary frequency, incontinence, nocturia, hematuria, dysuria, foul smelling urine, changes to urinary stream, flank pain, fever, and or chills. PSA 01/19 0.6. PVR 17ml's. Patient previously trialed Flom ax however this was discontinued as patient had been experiencing retrograde ejaculation. He otherwise offers no other issues or concerns at this time. [facility] Medical History Epidermal inclusion cyst Surgical History History of removal of cyst (~10/06/23) History of nasal surgery Social History Alcohol intake: current Alcohol intake frequency: holidays/special occasions only Patient Tobacco Use Status: Never used Tobacco Review of Systems Const All systems reviewed & are unremarkable except as noted in HPI and below Physical Exam Const General: cooperative, healthy appearing, comfortable, no acute distress, well developed, alert and awake Orientation/consciousness: patient oriented x3 Limitations: no limitations HEENT Head: Yes normal to inspection, Yes normocephalic and Yes atraumatic Ears: hearing grossly normal bilaterally Eyes General: appearance normal, both eyes and all related structures Neck Neck: Yes normal visual inspection and Yes trachea midline Chest Chest palpation & inspection: normal inspection of the chest Resp Effort & Inspection: normal respiratory effort and able to speak in complete sentences Cardio Rate: regular rate GI Inspection: Yes normal to inspection General: Yes no CVA tenderness Back/Spine/Pelvis Back: no CVA tenderness Skin General skin exam: no rashes or lesions noted Neuro General: patient oriented x3 Extrem General: Yes normal to inspection Psych Appearance: grossly normal and well kempt Mental Status: mental status grossly normal Speech and movement: Normal speech and movement present and Clear speech present Affect: normal affect Attitude: cooperative Thought process: Normal thought process present Thought content: Normal thought content present Insight: Fair insight present (Psych) Judgement: Fair judgement present (Psych) Office Procedures Post Void Residual Post Residual Void Post Void Residual (PVR): 17 [id number]-[id number] Void Residual by ultrasound Results AMB Urinalysis, Automated UA Leukoctes 0 Fallon/uL Last Edit by JANELLE Adame on 10/21/24 16:28 UA Nitrite Last Edit by JANELLE Adame on 10/21/24 16:28 UA Urobilinogen 0.2 mg/dL Last Edit by JANELLE Adame on 10/21/24 16:2 8 UA Protein 0 mg/dL Last Edit by Arnoldo oGmes, [facility] on 10/21/24 16:28 UA pH 6.0 Last Edit by Arnoldo Gomes, [facility] on 10/21/24 16:28 UA Blood 80 Yonatan/uL Last Edit by Arnoldo Gomes, [facility] on 10/21/24 16:28 UA Specific [place] 1.025 Last Edit by Arnoldo Gomes, [facility] on 10/21/24 16: 28 UA Ketone Last Edit by Arnoldo Gomes, [facility] on 10/21/24 16:28 UA Bilirubin 0 mg/dL Last Edit by Arnoldo Gomes, [facility] on 10/21/24 16:28 UA Glucose 0 mg/dL Last Edit by Arnoldo Gomes, [facility] on 10/21/24 16:28 Results Reviewed Results Reviewed: Laboratory Last Values Urine pH (Auto) 6.0 10/21/24 16:23 Specific [place] (Auto) 1.025 10/21/24 16:23 Urine Protein (Auto) 0 mg/dL 10/21/24 16:23 Glucose (UA)(Auto) 0 mg/dL 10/21/24 16:23 Urine Blood (Auto) 80 Yonatan/uL 10/21/24 16:23 Urine Bilirubin (Auto) 0 mg/dL 10/21/24 16:23 Urine Urobilinogen (Auto) 0.2 mg/dL 10/21/24 16:23 Leukocyte Esterase (Auto) 0 Fallon/uL 10/21/24 16:23 Assessment & Plan Assessment & Plan (1) Nephrolithiasis: Code(s): N20.0 - Calculus of kidney Category: Medical (2) Microscopic hematuria: Code(s): R31.29 - Other microscopic hematuria Category: Medical (3) BPH (benign prostatic hyperplasia): Code(s): N40.0 - Benign prostatic hyperplasia without lower urinary tract symptoms Category: Medical Plan In office urinalysis results reviewed with the patient today; as noted above; will send for urine cytology. Continue alfuzosin as discussed and prescribed. Patient currently denies any bothersome urinary issues or concerns. He reports be happy with current voiding parameters on current regimen. We did discussed potential causes of microscopic hematuria as well as further workup in risks and benefits of these interventions. Will continue with surveillance monitoring. Previous urine cytology results reviewed with the patient today; as noted above. Will obtain PSA in 6 months. Follow-up in 6 months with PSA and PVR; or sooner with any issues, concerns, and or questions. Orders: Orders Prostate Specific Antigen 6 Months N40.0 - Benign prostatic hyperplasia without lower urinary tract symptoms AMB Urinalysis Automated Today Z13.9 - Encounter for screening, unspecified AMB Post Void Residual by ultrasound Today N40.0 - Benign prostatic hyperplasia without lower urinary tract symptoms Urine Cytology Today R31.29 - Other microscopic hematuria Medications: Changed From alfuzosin ER Take before bedtime 10 mg PO BEDTIME 30 days 30 tabs 3RF N32.0 - Bladder- neck obstruction, N40.1 - Benign prostatic hyperplasia with lower urinary tract symptoms, R33.9 - Retention of urine, unspecified, R35.1 - Nocturia, R39.12 - Poor urinary stream To alfuzosin ER Take before bedtime 10 mg PO BEDTIME 90 tabs 3RF 90 days N32.0 - Bladder-neck obstruction, N40.1 - Benign prostatic hyperplasia with lower urinary tract symptoms, R33.9 - Retention of urine, unspecified, R35.1 - Nocturia, R39.12 - Poor urinary stream Coding Level of Care Code Est Pt Level 3 (25668) Complex EM visit Add On G2211 Diagnoses Nephrolithiasis N20.0 Microscopic hematuria R31.29 BPH (benign prostatic hyperplasia) N40.0 CPT Codes Post Residual Void - PVR CPT Code: 78747-Tfai Void Residual by ultrasound ([id number])
== END 2024-10-21 16:38 | disposition home or self-care (01) ==
LOC: HO.HUSH 15:57
PROVIDERS: PCP Internal Medicine; Visit Provider Nurse Practitioner Family
DX: N20.0 Calculus of kidney (principal); R31.29 Other microscopic hematuria; N40.0 Benign prostatic hyperplasia without lower urinary tract symptoms; Z13.9 Encounter for screening, unspecified
CPT/HCPCS: 99213; G2211

== ENCOUNTER 2025-04-19 10:01 | Outpatient (REF) | payer OTHER, SELFPAY ==
--- OUTSIDE RECORDS SUMMARY | 2025-04-19 11:05 | XMS_ITS | Clinical Summary ---
Author Organization [facility] Address [address] [address] Phone Care Team Providers Care Brewmaster Name Role Phone Rui Aleman MD Primary Care Provider Allergies No known active allergies Medications gabapentin (NEURONTIN) 600 MG tablet Take 600 mg by mouth 3 (three) times a day. Take 2 tablets three times a day Active PARoxetine (PAXIL) 40 MG tablet Take 50 mg by mouth every morning. Active prazosin (MINIPRESS) 5 MG capsule Take 5 mg by mouth nightly at bedtime. Active Social History Tobacco Use Types Packs/Day Years Used Date Smoking Tobacco: Never Assessed Education Answer Date Recorded Are you interested in more education? Not on capo e 08/23/2022 Are you concerned about learning? Not on file 08/23/2022 No 08/23/2022 No 08/23/2022 Digital Access Answer Date Recorded No 09/21/2022 No 09/21/2022 No 09/21/2022 Reliable internet access at home? Not on file 09/21/2022 Device with a working camera? Not on file Sex and Gender Information Value Date Recorded Sex Assigned at Male 06/30/2019 11:38 AM EST Legal Sex Male 11:28 AM EST Gender Identity Male 06/30/2019 11:38 AM EST Sexual Orientation Straight 06/30/2019 11 :38 AM EST Last Filed Vital Signs Vital Sign Reading Time Taken Comments Blood Pressure - - Pulse - - Temperature - - Respiratory Rate 20 09/02/2019 3:02 PM EDT Oxygen Saturation - - Inhaled Oxygen Concentration - - Weight - - Height - - Body Mass Index - - Plan of Treatment Health Maintenance Due Date Last Done Comments Adult Td,Tdap Booster 1959 LIPID PANEL 1959 DEPRESSION SCREENING 1971 SMOKING Hx and SMOKELESS TOB ACCO SCREENING 1972 HEPATITIS C SCREENING 1977 HIV ONE-TIME SCREENING (18-6 5 YEARS) 1977 COLOGUARD 2004 COLONOSCOPY 2004 COLORECTAL CANCER SCREENING 2004 FIT TEST 2004 FOBT 2004 SIGMOIDOSCOPY 2004 VIRTUAL COLONOSCOPY 2004 PNEUMOCOCCAL VACCINES (50+ y ears) (1 of 1 - PCV) 2009 ZOSTER VACCINES (1 of 2) 2009 INFLUENZA VACCINE (#1) 2024 COVID-19 VACCINE ( - 2024-2 6 season) 2024 RSV VACCINE (1 - 1-dose 75+ series) 2034 HEPATITIS A VACCINES Aged Out No long er eligible based on patient's age to complete this topic HIB VACCINES Aged Out No longer eligi ble based on patient's age to complete this topic MENINGOCOCCAL VACCINES (ACWY) Aged Out No longer eligible based on patient's age to complete this topic MENINGOCOCCAL VACCINES (B) Aged Out N o longer eligible based on patient's age to complete this topic Medical Devices Not on file Insurance KATIA LOERA [facility] [place] [address] [place] [address] [facility] [place] [address] [facility] Care Teams Brewmaster Relationship Specialty Start Date End Date Rui Aleman MD [address] [place] [id number] PCP - General Internal Medicine 06/30/19 Additional Source Comments The information contained in this document represents components of the legal health record. It is not the complete legal health record.[facility]
[2025-04-19 14:38] LABS: Prostate Specific Antigen 0.48 ng/mL (<0.05-4.0)
== END 2025-04-19 10:02 | disposition home or self-care (01) ==
LOC: HO.HMGCLDS 10:01
PROVIDERS: PCP Family Medicine; Visit Provider Nurse Practitioner Family
DX: N40.0 Benign prostatic hyperplasia without lower urinary tract symptoms (principal); Z12.5 Encounter for screening for malignant neoplasm of prostate
CPT/HCPCS: 36415; 84153

== ENCOUNTER 2025-04-25 12:53 | Outpatient (AMB) | payer OTHER, SELFPAY ==
--- NOTE | 2025-04-25 12:55 | A.OFFVIS_ITS ---
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 Lopez. He has a past medical history of depression, insomnia, chronic rhinitis, nephrolithiasis, and BPH. He presents to the office today for follow-up of his nephrolithiasis, microscopic hematuria and BPH. In discussion with the patient today he reports to be doing and feeling well. He reports approximately 3-4 months ago he had been experiencing right-sided flank pain at which time he seeked emergency room care through [facility] and has since passed a kidney stone. He also reports compliance with alfuzosin as prescribed and does feel this has been helpful in urinary hesitancy. He had previously been on tamsulosin however experience retrograde ejaculation and therefore alfuzosin was initiated. He does feel tamsulosin was more helpful in his enquiring a refill. He reports that although he experiences urinary hesitancy he has no other bothersome urinary issues. Previous workup has included renal ultrasound 07/20 noting bilateral kidneys with no calculi or hydronephrosis noted. In office urinalysis results reviewed with the patient today 1+ microscopic hematuria we did discuss potential causes of microscopic hematuria as well as further workup to include imaging as well as cystoscopy. Previous urine cytology results were reviewed: Urine Cytology: 11/18 & 07/20 & 10/20: Negative for high-grade urothelial carcinoma He denies any previous history of nicotine dependence and or workplace chemical exposure. He denies urinary urgency, urinary frequency, incontinence, nocturia, hematuria, dysuria, foul smelling urine, changes to urinary stream, flank pain, fever, and or chills. Recent PSA results reviewed with the patient today as noted and trended below: PSA: 01/19 0.6, 04/21 1.5 He otherwise offers no other issues or concerns at this time. [facility] Medical History Epidermal inclusion cyst Surgical History History of removal of cyst (~10/06/23) History of nasal surgery Social History Alcohol intake: current Alcohol intake frequency: holidays/special occasions only Patient Tobacco Use Status: Never used Tobacco Review of Systems Const All systems reviewed & are unremarkable except as noted in HPI and below Physical Exam Const General: cooperative, healthy appearing, comfortable, no acute distress, well developed, alert and awake Orientation/consciousness: patient oriented x3 Limitations: no limitations HEENT Head: Yes normal to inspection, Yes normocephalic and Yes atraumatic Ears: hearing grossly normal bilaterally Eyes General: appearance normal, both eyes and all related structures Neck Neck: Yes normal visual inspection and Yes trachea midline Chest Chest palpation & inspection: normal inspection of the chest Resp Effort & Inspection: normal respiratory effort and able to speak in complete sentences Cardio Rate: regular rate GI Inspection: Yes normal to inspection General: Yes no CVA tenderness Back/Spine/Pelvis Back: no CVA tenderness Skin General skin exam: no rashes or lesions noted Neuro General: patient oriented x3 Extrem General: Yes normal to inspection Psych Appearance: grossly normal and well kempt Mental Status: mental status grossly normal Speech and movement: Normal speech and movement present and Clear speech present Affect: normal affect Attitude: cooperative Thought process: Normal thought process present Thought content: Normal thought content present Insight: Fair insight present (Psych) Judgement: Fair judgement present (Psych) Office Procedures Post Void Residual Post Residual Void Post Void Residual (PVR): 0 [id number] Void Residual by ultrasound Results AMB Urinalysis, Automated UA Leukoctes 0 Fallon/uL Last Edit by Selena Jason, [facility] on 04/25/25 13:06 UA Nitrite Negative Last Edit by Selena Colon, [facility] on 04/25/25 13:06 UA Urobilinogen 0.2 mg/dL Last Edit by Selena Colon, [facility] on 04/25/25 13:06 UA Protein 15 mg/dL Last Edit by Selena [place], [facility] on 04/25/25 13:06 UA pH 6.0 Last Edit by Selena [place], [facility] on 04/25/25 13:06 UA Blood 25 Yonatan/uL Last Edit by [facility], [facility] on 04/25/25 13:06 UA Specific [place] 1.015 Last Edit by Selena [place], [facility] on 04/25/25 13:0 6 UA Ketone Negative Last Edit by Selena [place], [facility] on 04/25/25 13:06 UA Bilirubin 0 mg/dL Last Edit by Selena [place], [facility] on 04/25/25 13:06 UA Glucose 0 mg/dL Last Edit by Selena [place], [facility] on 04/25/25 13:06 Results Reviewed Results Reviewed: Laboratory Last Values Urine pH (Auto) 6.0 04/25/25 12:57 Specific [place] (Auto) 1.015 04/25/25 12:57 Urine Protein (Auto) 15 mg/dL 04/25/25 12:57 Glucose (UA)(Auto) 0 mg/dL 04/25/25 12:57 Urine Ketones (Auto) Negative 04/25/25 12:57 Urine Blood (Auto) 25 Yonatan/uL 04/25/25 12:57 Urine Nitrite (Auto) Negative 04/25/25 12:57 Urine Bilirubin (Auto) 0 mg/dL 04/25/25 12:57 Urine Urobilinogen (Auto) 0.2 mg/dL 04/25/25 12:57 Leukocyte Esterase (Auto) 0 Fallon/uL 04/25/25 12:57 Assessment & Plan Assessment & Plan (1) Nephrolithiasis: Code(s): N20.0 - Calculus of kidney Category: Medical (2) Microscopic hematuria: Code(s): R31.29 - Other microscopic hematuria Category: Medical (3) BPH (benign prostatic hyperplasia): Code(s): N40.0 - Benign prostatic hyperplasia without lower urinary tract symptoms Category: Medical (4) Flank pain: Code(s): R10.9 - Unspecified abdominal pain Category: Medical Plan In office urinalysis results with the patient today; as noted above. PVR 0 mL. Stop alfuzosin. Restart tamsulosin as discussed and prescribed. Recent PSA results reviewed with the patient today; as noted above. Will obtain renal ultrasound for further assessment evaluation. All questions were answered. Follow-up in 3 months with imaging and PVR; or sooner with any issues, concerns, and or questions. Orders: Orders AMB Urinalysis Automated Today N13.8 - Other obstructive and reflux uropathy, N40.1 - Benign prostatic hyperplasia with lower urinary tract symptoms Urine Cytology Today R31.29 - Other microscopic hematuria AMB Post Void Residual by ultrasound Today N40.1 - Benign prostatic hyperplasia with lower urinary tract symptoms US renal BI Today N20.0 - Calculus of kidney Medications: New tamsulosin 0.4 mg PO BEDTIME 30 caps 3RF 30 days N40.1 - Benign prostatic h yperplasia with lower urinary tract symptoms, R35.1 - Nocturia Discontinued alfuzosin ER Take before bedtime Discontinued Reason: Doctor's Order 10 mg PO BEDTIME 90 days 90 tabs 3RF N32.0 - Bladder-neck obstruction, N40.1 - Benign prostatic hyperplasia with lower urinary tract symptoms, R33.9 - Retention of urine, unspecified, R35.1 - Nocturia, R39.12 - Poor urinary stream Patient Instructions: The patient had an opportunity to ask questions regarding the treatment plan. All questions were answered. Physical exam, labs, and imaging were discussed and reviewed in detail. As well as risks, benefits, and discussion of treatment choices. No major barriers to understanding were identified. The patient expressed understanding and agreement with the above treatment plan. The patient was made aware they should contact our office by phone for worsening of their current condition, the appearance of new symptoms, or with any questions or concerns. Compliance is encouraged with any medications and follow up testing that is ordered. It is a privilege to be allowed the opportunity to participate in? your urological care.? Again, if you have any questions or concerns If you have any questions or concerns please do not hesitate to contact me. The office is [phone]. This note is constructed using voice recognition software. While every effort has been made to ensure accuracy spray painting machine operator errors may have been included. Yours sincerely, PHUC Rodriguez Coding Level of Care Code Est Pt Level 3 (98306) Add On Problem Visit Only Diagnoses Nephrolithiasis N20.0 Microscopic hematuria R31.29 BPH (benign prostatic hyperplasia) N40.0 Flank pain R10.9 CPT Codes Post Residual Void - PVR CPT Code: 38289-Gjgd Void Residual by ultrasound ([id number])
--- OUTSIDE RECORDS SUMMARY | 2025-04-25 14:47 | XMS_ITS | Clinical Summary ---
Author Organization [facility] Address [address] [address] Phone Care Team Providers Care Car Repairer Apprentice Name Role Phone Rui Aleman MD Primary [...] Devices Not on file Insurance KATIA LOERA [facility] [place] [address] [address] [place] [address] [facility] [place] [address] [facility] Care Teams Car Repairer Apprentice Relationship Specialty Start Date End Date Rui Aleman MD [address] [place] [id number] PCP - General Internal Medicine 06/30/19 Additional Source Comments The information contained in this document represents components of the legal health record. It is not the complete legal health record.[facility]
== END 2025-04-25 13:19 | disposition home or self-care (01) ==
LOC: HO.HUSH 12:53
PROVIDERS: PCP Family Medicine; Visit Provider Nurse Practitioner Family
DX: N20.0 Calculus of kidney (principal); R31.29 Other microscopic hematuria; N40.0 Benign prostatic hyperplasia without lower urinary tract symptoms; R10.9 Unspecified abdominal pain; N40.1 Benign prostatic hyperplasia with lower urinary tract symptoms; N13.8 Other obstructive and reflux uropathy
CPT/HCPCS: 99213; G2211

== ENCOUNTER 2025-04-25 12:53 | Outpatient (REF) | payer OTHER, SELFPAY | END 2025-04-25 12:54 | disposition home or self-care (01) | LOC: HO.LAB 12:53 | PROVIDERS: PCP Family Medicine; Visit Provider Nurse Practitioner Family | DX: R31.29 Other microscopic hematuria (principal); N40.1 Benign prostatic hyperplasia with lower urinary tract symptoms; N32.0 Bladder-neck obstruction; N20.0 Calculus of kidney; N13.8 Other obstructive and reflux uropathy; I10 Essential (primary) hypertension; R10.A1 Flank pain, right side; R39.12 Poor urinary stream; R35.1 Nocturia; R33.8 Other retention of urine; Z79.899 Other long term (current) drug therapy | CPT/HCPCS: 51798; 81003; 88112; 99212 ==